=== PATIENT | male | born 1970 | race Caucasian/White ===

== ENCOUNTER 2017-11-15 07:53 | Observation (INO) | payer BC, MEDICAID ==
[2017-11-15] MEDS ORDERED: NS 1,000 ML IV ONE (09:24)
[2017-11-15 09:43] LABS: PLATELET COUNT 262 10^3/uL (150-400)
--- NOTE | 2017-11-15 09:45 | EDPHY ---
HPI/HX/ROS/PE/MDM Narrative: CHIEF COMPLAINT: Blood in stool HISTORY OF PRESENT ILLNESS: This patient is a 47 y/o male complaining of gastrointestinal upset and blood in his stool. Sunday night, after eating chicken, he had bloody stool and developed muscle aches, arthralgia, diarrhea, stomach pain, fever and chills. Last night, had reoccurrence of painful diarrhea with associated blood. He endorses burning pain and frequent urge to have a bowel movement. He denies any blood in his underclothing or not associated with stools. Has not eaten much lately. Some pain similar to prior hemorrhoidal pain. Additionally, the patient has had chronic symptoms including watery stools, muscle pain, back spasms, "drunkenness". He has been unable to play guitar due to cracking/creaking in his joints including finger joints. Seeing clinical staff anesthesiologist for evaluation of "some syndrome" and states he has not had any conclusive diagnoses. He is concerned about underlying fungal infection due to resolution of symptoms with Nystatin. The patient did follow up with GI in 2016. He denies history of diverticulosis, IBS, Crohn's disease. Denies history of hypertension , kidney disease, cholecystitis. Denies history of HIV. No frequent international travel. No chest pain, shortness of breath, palpitations, vomiting , urinary complaints, headache, lightheadedness. REVIEW OF SYSTEMS: Aside from elements discussed in the HPI, a comprehensive 10-point review of systems was reviewed and is negative. PAST MEDICAL HISTORY: Scoliosis, appendectomy. SOCIAL HISTORY: Former c web developer. Uses [employer]. Nonsmoker, no alcohol use, no illicit drug use. VITAL SIGNS: Reviewed by me GENERAL: Thin gentleman, in no respiratory distress. HEENT: Atraumatic. Eyes: No icterus, no injection. Mouth: moist mucous membranes. No erythema or lesions. Neck: supple with no adenopathy. LUNGS: Clear to auscultation bilaterally, no wheezes, rhonchi or rales. CARDIAC: Regular rate and rhythm, no rubs, murmurs or gallops. ABDOMEN: Soft, diffuse mild tenderness without guarding or rebound. Nondistended. No focal tenderness. RECTAL: Tender on rectal exam, external hemorrhoids noted, stool light brown. BACK: No CVA tenderness. EXTREMITIES: No trauma. No edema. Range of motion is normal throughout. NEURO: Alert and oriented, grossly nonfocal. SKIN: Warm and dry, no rash. PSYCHIATRIC: Normal mentation, no agitation. Portions of this note were transcribed by a medical observer. I personally performed a history, physical exam, medical decision making, and confirmed accuracy of information the transcribed note. ED Course: 47 y/o male presents with abdominal discomfort and several episodes of blood associated with his bowel movements, ongoing since Sunday. Plan for labs including CBC, chemistries, CPK, occult blood. Occult blood positive. WBC elevated at 16,000. Laboratory studies otherwise unremarkable, H&H within normal limits. 10:[address] Perez, radiologist. CT abdomen shows pancolitis suggestive of C. Difficile colitis. Plan for GI pathogen study. Plan to admit. 11:47 Spoke with hospitalist service. Dr. Amos accepts admission for diarrhea , colitis, possible C. Difficile. MDM: Differential diagnosis for the patient's diarrhea was considered including but not limited to gastroenteritis, colitis, diverticulitis, bacterial dysentery, viral diarrhea, medication effect, and malabsorption syndrome. - Data Points Imaging Results: Imaging Impressions Abdomen CT 11/15/17 10:01 Impression: 1. Pancolitis suggestive of C. Difficile colitis. 2. Trace perihepatic free fluid. No abscess or obstruction. Findings discussed with Emergency Department physician, Ana María Wayne MD on at 10:57 a.m. Imaging: Discussed imaging studies w/ street light mechanic Radiologist Laboratory Results: Laboratory Results 11/15/17 09:15 11/15/17 09:15 11/15/17 11/15/17 11/15/17 10:04 10:03 09:15 WBC RBC Hgb Hct MCV MCH MCHC RDW Plt Count MPV Neut % (Auto) Lymph % (Auto) [place] % (Auto) Eos % (Auto) Baso % (Auto) Nucleat RBC Rel Count Absolute Neuts (auto) Absolute Lymphs (auto) Absolute Monos (auto) Absolute Eos (auto) Absolute Basos (auto) Absolute Nucleated RBC Immature Gran % Immature Gran # Sodium 143 mEq/L mEq/L (135-145) Potassium 4.1 mEq/L mEq/L (3.5-5.2) Chloride 106 mEq/L mEq/L (97-110) Carbon Dioxide 21 mEq/l L mEq/l (22-31) Anion Gap 16 mEq/L mEq/L (8-16) BUN 21 mg/dL mg/dL (7-23) Creatinine 0.9 mg/dL mg/dL (0.7-1.3) Estimated GFR > 60 Glucose 80 mg/dL mg/dL (70-100) Calcium 9.0 mg/dL mg/dL (8.5-10.4) Creatine Kinase 40 IU/L IU/L (0-224) Stool Occult Bld Scrn POSITIVE H (NEGATIVE) 11/15/17 09:15 WBC 16.19 10^3/uL H 10^3/uL (3.80-9.50) RBC 4.97 10^6/uL 10^6/uL (4.40-6.38) Hgb 16.0 g/dL g/dL (13.7-17.5) Hct 45.4 % % (40.0-51.0) MCV 91.3 fL fL (81.5-99.8) MCH 32.2 pg pg (27.9-34.1) MCHC 35.2 g/dL g/dL (32.4-36.7) RDW 12.3 % % (11.5-15.2) Plt Count 262 10^3/uL 10^3/uL (150-400) MPV 9.9 fL fL (8.7-11.7) Neut % (Auto) 80.4 % H % (39.3-74.2) Lymph % (Auto) 11.0 % L % (15.0-45.0) [place] % (Auto) 7.7 % % (4.5-13.0) Eos % (Auto) 0.2 % L % (0.6-7.6) Baso % (Auto) 0.2 % L % (0.3-1.7) Nucleat RBC Rel Count 0.0 % % (0.0-0.2) Absolute Neuts (auto) 13.00 10^3/uL H 10^3/uL (1.70-6.50) Absolute Lymphs (auto) 1.78 10^3/uL 10^3/uL (1.00-3.00) Absolute Monos (auto) 1.25 10^3/uL H 10^3/uL (0.30-0.80) Absolute Eos (auto) 0.04 10^3/uL 10^3/uL (0.03-0.40) Absolute Basos (auto) 0.04 10^3/uL 10^3/uL (0.02-0.10) Absolute Nucleated RBC 0.00 10^3/uL 10^3/uL (0-0.01) Immature Gran % 0.5 % % (0.0-1.1) Immature Gran # 0.08 10^3/uL 10^3/uL (0.00-0.10) Sodium Potassium Chloride Carbon Dioxide Anion Gap BUN Creatinine Estimated GFR Glucose Calcium Creatine Kinase Stool Occult Bld Scrn Medications Given: Discontinued Medications Fentanyl (Sublimaze) 100 mcg IVP EDNOW ONE Stop: 11/15/17 14:07 Last Admin: 11/15/17 14:10 Dose: 100 mcg Sodium Chloride (Ns) 1,000 mls @ 0 mls/hr IV ONCE ONE PRN Reason: Wide Open Stop: 11/15/17 09:25 Last Admin: 11/15/17 09:25 Dose: 1,000 mls General Time Seen by Provider: 11/15/17 09:32 Initial Vital Signs: Initial Vital Signs Temperature (C) 36.8 C 11/15/17 08:16 Heart Rate 72 11/15/17 08:16 Respiratory Rate 16 11/15/17 08:16 Blood Pressure 137/90 H 11/15/17 08:16 O2 Sat (%) 97 11/15/17 08:16 O2 Delivery Mode Room Air Allergies/Adverse Reactions: No Known Allergies Allergy (Unverified 11/15/17 08:16) Home Medications: Medication Instructions Recorded NK [No Known Home Meds] 08/29/15 Departure - Departure Disposition: [facility] Acute Clinical Impression: Colitis, Possile C. difficile Diarrhea Qualifiers: Diarrhea type: presumed infectious Qualified Code(s): R19.7 - Diarrhea, unspecified Condition: Fair Report Scribed for: Ana María Wayne Report Scribed by: Monse Miller Date of Report: 11/15/17 Time of Report: 09:35
[2017-11-15] MEDS ORDERED: IOPAMIDOL (ISOVUE-300) 100 ML BTL ONE (10:10)
[2017-11-15] MEDS ORDERED: fentaNYL 100 MCG/2 ML INJ IVP ONE (14:06)
[2017-11-15] MEDS ORDERED: fentaNYL 100 MCG/2 ML INJ ONE (14:07)
[2017-11-15] MEDS ORDERED: PROMETHAZINE HCL 25 MG/ML INJ IVP PRN (15:43)
[2017-11-15] MEDS ORDERED: ONDANSETRON 4 MG/2 ML VIAL IVP PRN (15:43)
[2017-11-15] MEDS ORDERED: ONDANSETRON DISINTEGRATING 4 MG TAB PO PRN (15:43)
[2017-11-15] MEDS ORDERED: ACETAMINOPHEN 325 MG TAB PO PRN (15:43)
--- NOTE | 2017-11-15 16:14 | GHP ---
[f rep st] HISTORY AND PHYSICAL DATE OF ADMISSION: 11/15/2017 The patient is a 47-year-old gentleman with a history of longstanding digestive issues with largely n egative workups in the past, who presents with diarrhea that has been going on about a week or 5 days . It started after eating chicken. He suspects he has salmonella. He has had bloody stool and musc le aches, as well as fevers and chills. He also had diarrhea with associated blood. He has not had hematemesis or coffee-ground emesis. He has not had melena. He has not taken anythin g. In the past, he has attributed his digestive issues to "fungal infections" as he has had been given n ystatin with improved symptoms. In the past, he has had an EGD which was largely normal other than some flat duodenal mucosa. A biop sy was negative for celiac disease. He had a colonoscopy that was also unremarkable. There is not a family history of inflammatory bowel disease. He has had some nonspecific joint pains, but no rahul joint swelling. He has he states Herxheimer reaction recently in the past, despite not having taken antibiotics. He has not taken nystatin in a number of months. REVIEW OF SYSTEMS: Complete 10-point review of systems conducted, negative except as noted in the HP I. PAST MEDICAL HISTORY: Longstanding digestive issues of uncertain etiology with negative workup. ALLERGIES: No known drug allergies. HOME MEDICATIONS: None. SOCIAL HISTORY: He is originally from [facility]. He is a web search evaluator. Currently not wo rking. He denies alcohol or tobacco. FAMILY HISTORY: Reviewed and unremarkable. PHYSICAL EXAMINATION: VITAL SIGNS: Temp 36.8, blood pressure 137/90, pulse 72, breathing 16 times a minute, 97% on room air. GENERAL: No acute distress. HEENT: Sclerae anicteric. Oropharynx clear . Mucous membranes moist. NECK: Supple without lymphadenopathy or JVD. LUNGS: Clear to auscultat ion bilaterally. HEART: S1, S2. ABDOMEN: Soft, nontender, nondistended. LOWER EXTREMITIES: No ed kaitlyn. Calves are nontender. SKIN: Without rash. NEUROLOGIC: Nonfocal. LABORATORY DATA: White count 16.2, hematocrit 45, platelets are 262,000. Sodium 143, potassium 4.1, chloride 106, bicarb 21, BUN 21, creatinine 0.9, glucose 80. CK is 40. Stool is positive for blood . GI panel is pending. Abdominal CT, images reviewed and interpreted by me, shows lemos colitis without other significant intr aabdominal findings. I discussed the case Dr. Ana María Wayne. ASSESSMENT/PLAN: A 47-year-old gentleman who presents with diarrhea, bloody diarrhea, pancolitis. 1. Pancolitis. This is concerning for possible Clostridium difficile. Based on the CAT scan appear ance, I am not sure that taking nystatin represents a risk for Clostridium difficile, but it is worth considering. His stool studies are pending. I will hold antibiotics. Salmonella is also a reasona ble consideration, given the of chicken. Will follow. The patient does not have a surgic al abdomen. 2. Longstanding gastrointestinal issues. This is of uncertain etiology. It sounds like he has had a reasonable negative workup in the past. Will follow. 3. Prophylaxis. Sequential compression devices. 4. Nausea. As-needed antiemetics. 5. Pain. Will give him some oral oxycodone as required. 6. Disposition. Inpatient status. I anticipate greater than 2 midnights, given the long-standing n ature of these symptoms. However, the patient may be amenable to discharge tomorrow. Will follow. /[id number]/MODL
[2017-11-15] MEDS: oxyCODONE IR 5 MG TAB PO PRN (20:45)
[2017-11-15] MEDS: NS 1,000 ML IV SCH (23:30)
[2017-11-16] MEDS: oxyCODONE IR 5 MG TAB PO PRN ×2 (01:57→12:25)
[2017-11-16 05:00] LABS: PLATELET COUNT 231 10^3/uL (150-400)
[2017-11-16 07:23] VITALS: BP 106/73
[2017-11-16] MEDS: NS 1,000 ML IV SCH (08:00)
[2017-11-16] MEDS: VANCOMYCIN 125 MG/2.5 ML UDL PO SCH ×2 (08:00→12:20)
--- NOTE | 2017-11-16 11:28 | ASMTCMCOM ---
CM Note CM Note Notes: Pt admitted with diarrhea, cdiff. He lives independently but currently is with his mother while his apt is getting some work done. Justine came to submit an application for Medicaid, pt is not insured, states is currently unemployed. Anticipate pt will dc home indepedent when medically stable, CM available for any changes. DC Plan: Independent Date Signed: 11/16/2017 11:27 AM Electronically Signed By:Sarah Sandhu RN
--- NOTE | 2017-11-16 13:25 | HOSPPROG ---
Hospitalist Progress Note Assessment/Plan: 47 yo M w cdiff home today see dc summary Subjective: cdiff + Objective: Vital Signs Temp Pulse Resp BP Pulse Ox 36.5 C 48 L 16 106/73 95 11/16/17 07:22 11/16/17 07:22 11/16/17 07:22 11/16/17 07:22 11/16/17 07:22 Microbiology 11/15/17 19:30 Gastrointestinal Tract Panel (PCR) - Final Stool Clostridium Difficile Detected Laboratory Results 11/16/17 04:38 11/16/17 04:38 11/15/17 11/16/17 11/17/17 05:59 05:59 05:59 Intake Total 2750 Balance 2750 - Physical Exam Constitutional: no apparent distress, appears nourished Eyes: PERRL, anicteric sclera Ears, Nose, Mouth, Throat: moist mucous membranes, hearing normal Cardiovascular: regular rate and rhythym, no murmur, rub, or gallop Respiratory: no respiratory distress, no rales or rhonchi Gastrointestinal: normoactive bowel sounds, soft, non-tender abdomen Genitourinary: No salgado in urethra Skin: warm, normal color Musculoskeletal: full muscle strength, no muscle tenderness Neurologic: AAOx3, sensation intact bilaterally Psychiatric: interacting appropriately ICD10 Worksheet Patient Problems: Problems Problem Status Onset Colitis Acute Diarrhea Acute
--- NOTE | 2017-11-16 13:51 | GDS ---
[f rep st] DISCHARGE SUMMARY DISCHARGE DIAGNOSES: Clostridium difficile colitis. HOSPITAL COURSE: Please see admission history and physical by Dr. Eriberto Rosado. The patient is a 47-year-old gentleman with a longstanding history of diarrheal complaints. He has had normal endosco py with biopsy in the past. This has precluded him from working. About a week prior to admission, anabella sanchez became sick with crampy diarrhea of a worse nature with some blood. His abdominal CT scan revealed diffuse colitis suggestive of C diff, and stool testing confirmed that. He states he has not taken antibiotics in more than 10 years; however, he has taken nystatin recently. There is no clear associ ation between an antifungal and the development of C diff. He did not have an acute abdomen. He is eating well and stooling. He is not dehydrated. He is discharged home with a 14-day course of oral vancomycin. The patient expressed a great deal of enthusiasm and support in request for fecal transplant. I stat ed that the standard of care would be to complete a course of vancomycin, and I directed him back to GI of the [facility] for further followup regarding his fecal transplant, as he feels this would be a cu re-all for his longstanding diarrheal complaints. /[id number]/MODL
== END 2017-11-16 14:04 | disposition home or self-care (01) ==
LOC: F3E 14:29
PROVIDERS: ADMIT Internal Medicine; ATTEND Internal Medicine
DX: A04.72 Enterocolitis due to Clostridium difficile, not specified as recurrent (principal); R11.0 Nausea; M25.50 Pain in unspecified joint
CPT/HCPCS: 74177; G0378; J3010; Q9967